=== PATIENT | male | born 1980 | race African-American/Black ===

== ENCOUNTER 2018-09-30 15:00 | Emergency (ER) | payer MEDICAID ==
[~2018-09-30] VITALS: Ht 188 cm; Wt 101.7 kg
[2018-09-30] MEDS ORDERED: IBUPROFEN 800MG TABLET PO ONE (19:30)
[2018-09-30] MEDS ORDERED: TETANUS, DIPHTHERIA, PERTUSSIS VAC/PF 0.5ML (>7YR OLD) IM ONE (19:30)
[2018-09-30] MEDS ORDERED: ACETAMINOPHEN 325MG TABLET PO ONE (20:15)
[2018-09-30 21:46] VITALS: BP 148/99
== END 2018-09-30 21:47 | disposition home or self-care (01) ==
LOC: ER 15:00
DX: S82.51XB Displaced fracture of medial malleolus of right tibia, initial encounter for open fracture type I or II (principal); F17.200 Nicotine dependence, unspecified, uncomplicated; Z88.6 Allergy status to analgesic agent; Z98.890 Other specified postprocedural states; V29.88XA Motorcycle rider (driver) (passenger) injured in other specified transport accidents, initial encounter; Y93.89 Activity, other specified; Y92.89 Other specified places as the place of occurrence of the external cause; Y99.8 Other external cause status
CPT/HCPCS: 29515; 73610; 73630; 90471; 90715; 99283